=== PATIENT | female | born 1960 | race Caucasian/White ===

== ENCOUNTER 2024-11-19 07:42 | Day surgery (SDC) | payer OTHER, SELFPAY ==
[2024-11-19] VITALS (25 sets, daily range): BP systolic 94–169; BP diastolic 55–102; PULSE 59–100; RESP 14–24; TEMP 36.2–37.2; O2SAT 93–100; BMI 32.1
--- NOTE | 2024-11-19 07:58 | DI.CT.S_ITS ---
PROCEDURE: CT KIDNEY URETER BLADDER (KUB) INDICATIONS: Flank pain TECHNIQUE: Axial sections were acquired from the lung bases to the pubic symphysis. Coronal and sagittal reformats were performed. For radiation dose reduction, the following was used: automated exposure control, adjustment of mA and/or kV according to patient size. COMPARISON: None. FINDINGS: Image quality: Diagnostic. Lower Chest: No significant findings. URINARY: Right Kidney: No stones or hydronephrosis. Right Ureter: No hydroureter. Left Kidney: Severe hydronephrosis, perinephric stranding. 4 mm middle pole stone. Lower pole calyceal stone measuring 0.9 x 1.8 cm with a Hounsfield measurement of 283.4. Left Ureter: Proximal ureteral stone measuring 2.4 x 0.7 x 0.4 cm. There is a punctate 2 mm stone in the more distal ureter at the level of the S1 vertebral body. Bladder: Normal wall thickness. No stones. ABDOMEN: Liver: No contour-deforming solid mass. Gallbladder: No radiopaque gallstones or wall thickening. Biliary ducts: No biliary dilation. Pancreas: No ductal dilation. Spleen: Size is within normal limits. Adrenal Glands: No adrenal nodules. Stomach and Bowel: Normal colonic caliber, without significant wall thickening. Peritoneum: No abnormal intraperitoneal fluid. No free air. Ventral Wall: No hernia. Abdominal Nodes: No enlarged retroperitoneal or mesenteric lymph nodes. Vessels: Aorta and inferior vena cava are normal in size. PELVIS: Pelvic Organs: Uterus is surgically absent. No adnexal masses.. Pelvic Nodes: Unremarkable. Miscellaneous: No inguinal hernias are seen. Bones: Lumbar degenerative change. No lytic or blastic bony lesions. No compression fractures. IMPRESSION: 1. There is a long, somewhat thin stone obstructing the proximal left ureter, measuring 2.4 x 0.7 x 0.4 cm. It results in severe left hydronephrosis. 2. Punctate more distal left ureteral stone. 3. Large left lower pole calyceal stone and smaller left middle pole parenchymal stone. Dictated by: Edis Arciniega M.D. on 11/19/2024 at 8:26 Approved by: Edis Arciniega M.D. on 11/19/2024 at 8:32
[2024-11-19 08:04] LABS: Add Manual Diff / Slide Review NO; Basophils Absolute Auto 100 /uL (0-100); Basophils Percent Auto 0.4 % (0-2); Eosinophils Absolute Auto 0 /uL (0-450); Hematocrit 46.1 % (36-46); Hemoglobin 15.5 g/dL (12.0-16.0); Lymphocytes Absolute Auto 900 /uL (1100-4500); Lymphocytes Percent Auto 5.2 % (25-40); Mean Corpuscular HGB Conc 33.6 % (30-36); Mean Corpuscular Hemoglobin 30.1 PG (26-34); Mean Corpuscular Volume 89.8 fL (80-100); Monocytes Absolute Auto 900 /uL (0-900); Monocytes Percent Auto 5.3 % (3-14); Neutrophils Absolute Auto 15000 /uL (1500-7000); Neutrophils Percent Auto 89.1 % (50-75); Platelet Count 346 X10^3/uL (150-400); Red Blood Cell Count 5.13 X10^6/uL (4.0-5.2); Red Cell Distribution Width 13.9 % (11.6-14.8); White Blood Cell Count 16.8 X10^3/uL (4.5-11.0)
--- NOTE | 2024-11-19 08:06 | ED_ITS ---
HPI - General Adult General Chief complaint: Urogenital-Female Stated complaint: passing a stone Time Seen by Provider: 11/19/24 07:53 Source: patient Mode of arrival: Ambulatory History of Present Illness HPI narrative: Patient here for left flank pain. Nausea and vomiting and urinary urgency frequency. This started yesterday morning. She went to local emergency department on but no CT available. She states she has had multiple CT scans in the past including surgeries. She does not want Flomax. It makes her incontinent. She desires Toradol Zofran normal saline. She states she is not allergic to Percocet. She did drive here. Related Data Home Medications Medication Instructions Recorded Confirmed hydrochlorothiazide 25 mg tablet 25 mg DAILY 11/19/24 11/19/24 lisinopril 40 mg tablet 40 mg DAILY 11/19/24 11/19/24 potassium chloride 10 mEq 10 meq PO BID 11/19/24 11/19/24 capsule,extended release Previous Rx's Medication Instructions Recorded sulfamethoxazole 800 1 tab PO BID #10 tabs 11/19/24 mg-trimethoprim 160 mg tablet tamsulosin 0.4 mg capsule 0.4 mg PO DAILY #30 caps 11/19/24 Allergies Allergy/AdvReac Type Severity Reaction Status Date / Time ciprofloxacin [From Cipro] Allergy Unknown Verified 11/19/24 08:06 codeine Allergy Unknown HALLUCINATI Verified 11/19/24 08:06 ONS doxycycline Allergy Unknown Verified 11/19/24 08:06 nitrofurantoin Allergy Unknown Verified 11/19/24 08:06 NSAIDS (Non-Steroidal Allergy Unknown upset Verified 11/19/24 13:50 Anti-Inflamma stomach hydromorphone [From Dilaudid] AdvReac Severe Headache Verified 11/19/24 13:53 Review of Systems Review of Systems Narrative: GENERAL: Negative chills, fatigue, malaise, fever, sweats. HEENT: Negative sinus pain, ear pain, sore throat RESPIRATORY: Negative dyspnea, cough CARDIOVASCULAR: Negative chest pain, palpitations GASTROINTESTINAL: Positive flank pain at nausea, vomiting, abdominal pain : Positive dysuria, frequency, negative hematuria MUSCULOSKELETAL: Negative muscle or bony pain SKIN: Negative rash, skin lesions NEUROLOGIC: Negative weakness, numbness ROS Unobtainable: All systems reviewed & are unremarkable except as noted in HPI and below Patient History Medical History (Updated 11/19/24 @ 13:47 by Kavin Martins RN) HTN (hypertension) Social History Smoking Status: Former smoker alcohol intake: never Smoking Status: Never smoker Exam Narrative Exam Narrative: GENERAL: in no distress, not toxic not dyspneic HEAD: Normocephalic. EYES: Pupils equal round ENT: Mucous membranes moist. NECK: Trachea midline. CARDIOVASCULAR: Regular rate and rhythm RESPIRATORY: Clear to auscultation. Breath sounds equal bilaterally. No wheezes, rales, or rhonchi. GASTROINTESTINAL: Abdomen soft, non-tender, no peritoneal signs no guarding or rebound. Bowel sounds are present. EXTREMITIES: No gross deformities. BACK: Mild left CVA tenderness NEURO: AOx4. Clear speech SKIN: Warm and dry PSYCH: Not anxious, is cooperative Initial Vital Signs Initial Vital Signs: Vital Signs Temperature 98.9 F 11/19/24 07:48 Pulse Rate 95 H 11/19/24 07:48 Respiratory Rate 17 11/19/24 07:48 Blood Pressure 159/98 H 11/19/24 07:48 Pulse Oximetry 97 11/19/24 07:48 Oxygen Delivery Method Room Air 11/19/24 07:48 Course Orders Ordered: Discontinued Medications Acetaminophen (Acetaminophen 325 Mg Tablet) 975 mg PO Q6H PRN PRN Reason: Pain, Mild (1-3) Benzocaine (Benzocaine/Menthol 1 Amada Pkt) 1 each PO PRN PRN PRN Reason: Sore Throat Dexamethasone (Dexamethasone 10 Mg/Ml Vial) 8 mg IV NOW PRN PRN Reason: Nausea And Vomiting Fentanyl (Fentanyl 100 Mcg/2 Ml Inj) 0 mcg IV Q5M PRN PRN Reason: Pain, Moderate (4-6) Hydroxyzine HCl (Hydroxyzine Hcl 25 Mg Tablet) 25 mg PO NOW PRN PRN Reason: Pain, Mild (1-3) Sodium Chloride (Normal Saline 0.9%) 1,000 mls @ 1,000 mls/hr IV BOLUS ONE Stop: 11/19/24 08:57 Last Infusion: 11/19/24 09:37 Dose: Infused Documented By: Admin: 11/19/24 08:09 Dose: 1,000 mls/hr Documented By: RENETTA Ceftriaxone Sodium 2,000 mg/ (Sodium Chloride) 100 mls @ 200 mls/hr IV NOW ONE Stop: 11/19/24 09:18 Last Infusion: 11/19/24 10:09 Dose: Infused Documented By: Admin: 11/19/24 09:34 Dose: 200 mls/hr Documented By: RENETTA Lactated Ringer's (Lactated Ringers) 1,000 mls @ 42 mls/hr IV NOW ONE Stop: 11/20/24 13:49 Last Infusion: 11/19/24 15:31 Dose: Infused Documented By: Admin: 11/19/24 14:01 Dose: 42 mls/hr Documented By: SHADE Lactated Ringer's (Lactated Ringers) 1,000 mls @ 120 mls/hr IV CONT LISA Acetaminophen (Ofirmev) 1,000 mg in 100 mls @ 400 mls/hr IV NOW ONE Stop: 11/19/24 15:01 Last Infusion: 11/19/24 15:32 Dose: Infused Documented By: Admin: 11/19/24 15:13 Dose: 400 mls/hr Documented By: CORIE Iopamidol (Iopamidol 30 Ml Vial) 30 ml INJ NOW ONE Stop: 11/19/24 14:34 Last Admin: 11/19/24 14:33 Dose: 30 ml Documented By: DIANA Ketorolac Tromethamine (Ketorolac 30 Mg/Ml Vial) 15 mg IV NOW ONE Stop: 11/19/24 07:59 Last Admin: 11/19/24 08:09 Dose: 15 mg Documented By: RENETTA Ketorolac Tromethamine (Ketorolac 30 Mg/Ml Vial) 30 mg IV NOW PRN PRN Reason: Pain, Mild (1-3) Last Admin: 11/19/24 15:13 Dose: 30 mg Documented By: CORIE Ondansetron HCl (Ondansetron 4 Mg/2 Ml Inj) 4 mg IV NOW PRN PRN Reason: Nausea And Vomiting Ondansetron HCl (Ondansetron 4 Mg Odt) 4 mg PO NOW PRN PRN Reason: Nausea And Vomiting Ondansetron HCl (Ondansetron 4 Mg/2 Ml Inj) 4 mg IV NOW ONE Stop: 11/19/24 07:59 Last Admin: 11/19/24 08:10 Dose: 4 mg Documented By: RENETTA Ondansetron HCl (Ondansetron 4 Mg/2 Ml Inj) 4 mg IV NOW PRN PRN Reason: Nausea And Vomiting Ondansetron HCl (Ondansetron 4 Mg/2 Ml Inj) 4 mg IV Q4H PRN PRN Reason: Nausea And Vomiting Oxycodone HCl (Oxycodone Ir 5 Mg Tablet) 5 mg PO PACUNOW PRN PRN Reason: Mild or moderate pain Vital Signs Vital signs: Vital Signs - 8 hr 11/19/24 07:48 11/19/24 07:51 11/19/24 07:54 Temperature 98.9 F Pulse Rate 95 H 100 H Respiratory Rate 17 Blood Pressure 159/98 H 159/98 H Pulse Oximetry 97 98 Oxygen Delivery Method Room Air 11/19/24 07:54 11/19/24 08:00 11/19/24 08:00 Temperature Pulse Rate 85 82 Respiratory Rate Blood Pressure 159/102 H Pulse Oximetry 96 97 Oxygen Delivery Method 11/19/24 08:09 11/19/24 08:09 11/19/24 08:30 Temperature Pulse Rate 82 68 Respiratory Rate Blood Pressure 168/96 H Pulse Oximetry 96 96 Oxygen Delivery Method 11/19/24 08:31 11/19/24 08:31 11/19/24 09:02 Temperature Pulse Rate 68 75 Respiratory Rate Blood Pressure 169/94 H Pulse Oximetry 99 99 Oxygen Delivery Method Medical Decision Making Lab Data 11/19/24 07:50 11/19/24 07:50 Labs: Lab Results 11/19/24 Range/Units 07:50 WBC 16.8 H (4.5-11.0) X10^3/uL RBC 5.13 (4.0-5.2) X10^6/uL Hgb 15.5 (12.0-16.0) g/dL Hct 46.1 H (36-46) % MCV 89.8 (80-100) fL MCH 30.1 (26-34) PG MCHC 33.6 (30-36) % RDW 13.9 (11.6-14.8) % Plt Count 346 (150-400) X10^3/uL Neut % (Auto) 89.1 H (50-75) % Lymph % (Auto) 5.2 L (25-40) % [place] % (Auto) 5.3 (3-14) % Eos % (Auto) 0.0 L (2-4) % Baso % (Auto) 0.4 (0-2) % Neut # (Auto) 37378 H (7684-6218) /uL Lymph # (Auto) 900 L (6264-5761) /uL [place] # (Auto) 900 (0-900) /uL Eos # (Auto) 0 (0-450) /uL Baso # (Auto) 100 (0-100) /uL Sodium 135 L (137-145) mmol/L Potassium 3.8 (3.4-5.1) mmol/L Chloride 100 (98-107) mmol/L Carbon Dioxide 23 (22-32) mmol/L BUN 22 H (7-17) mg/dL Creatinine 1.36 H (0.52-1.04) mg/dL Estimated GFR 43 L (>60) mL/min BUN/Creatinine Ratio 16.2 (6-22) Glucose 143 H (80-110) mg/dL Calcium 9.2 (8.4-10.2) mg/dL Total Bilirubin 1.0 (0.2-1.3) mg/dL AST 34 (14-36) IU/L ALT 29 (<35) IU/L Alkaline Phosphatase 69 (38-126) U/L Total Protein 7.5 (6.3-8.2) g/dL Albumin 4.5 (3.5-5.0) g/dL Globulin 3.0 (1.7-4.1) g/dL Albumin/Globulin Ratio 1.5 (1.0-2.8) Lipase 809 H (23-300) U/L Urine RBC 1-5/hpf (0-5/HPF) Urine WBC 5-10/hpf H (0-5/HPF) Ur Squamous Epith Cells None seen (0-5/HPF) Ur Transition Epith Cell 0-1/hpf (0-5/HPF) Ur Renal Epithelial Cell 1-5/hpf H (0-1/HPF) Urine Bacteria None seen (None) Ur Culture Indicated? Specimen cultured Vol Urine Centrifuged 10ml (spun) Urine Dip Bedside Urine Glucose Negative Bedside Urine Bilirubin - Negative Bedside Urine Ketone - Negative Urine Specific [place] 1.010 Bedside Urine Occult Blood +++ Bedside Urine pH 6.0 Bedside Urine Protein - Negative Bedside Urine Urobilinogen - Negative Bedside Urine Nitrite - Negative Bedside Urine Leukocytes +++ 500 Esterase Point of care testing: Urine Dip Bedside Urine Glucose Negative Bedside Urine Bilirubin - Negative Bedside Urine Ketone - Negative Urine Specific [place] 1.010 Bedside Urine Occult Blood +++ Bedside Urine pH 6.0 Bedside Urine Protein - Negative Bedside Urine Urobilinogen - Negative Bedside Urine Nitrite - Negative Bedside Urine Leukocytes +++ [address] scan - abdomen/pelvis: Radiologist's Impression: [address] [id number] [address] Scan Report Signed Patient: Esme Sevilla MR#: [id number] : 1960 Acct:[id number] Age/Sex: 64 / F Date of Service: 11/19/24 Loc: ED Accession Number: [id number] Procedure: CT kidney ureter bladder (KUB) Ordering Provider: Vinh Milan MD PROCEDURE: CT KIDNEY URETER BLADDER (KUB) INDICATIONS: Flank pain TECHNIQUE: Axial sections were acquired from the lung bases to the pubic symphysis. Coronal and sagittal reformats were performed. For radiation dose reduction, the following was used: automated exposure control, adjustment of mA and/or kV according to patient size. COMPARISON: None. FINDINGS: Image quality: Diagnostic. Lower Chest: No significant findings. URINARY: Right Kidney: No stones or hydronephrosis. Right Ureter: No hydroureter. Left Kidney: Severe hydronephrosis, perinephric stranding. 4 mm middle pole stone. Lower pole calyceal stone measuring 0.9 x 1.8 cm with a Hounsfield measurement of 283.4. Left Ureter: Proximal ureteral stone measuring 2.4 x 0.7 x 0.4 cm. There is a punctate 2 mm stone in the more distal ureter at the level of the S1 vertebral body. Bladder: Normal wall thickness. No stones. ABDOMEN: Liver: No contour-deforming solid mass. Gallbladder: No radiopaque gallstones or wall thickening. Biliary ducts: No biliary dilation. Pancreas: No ductal dilation. Spleen: Size is within normal limits. Adrenal Glands: No adrenal nodules. Stomach and Bowel: Normal colonic caliber, without significant wall thickening. Peritoneum: No abnormal intraperitoneal fluid. No free air. Ventral Wall: No hernia. Abdominal Nodes: No enlarged retroperitoneal or mesenteric lymph nodes. Vessels: Aorta and inferior vena cava are normal in size. PELVIS: Pelvic Organs: Uterus is surgically absent. No adnexal masses.. Pelvic Nodes: Unremarkable. Miscellaneous: No inguinal hernias are seen. Bones: Lumbar degenerative change. No lytic or blastic bony lesions. No compression fractures. IMPRESSION: 1. There is a long, somewhat thin stone obstructing the proximal left ureter, measuring 2.4 x 0.7 x 0.4 cm. It results in severe left hydronephrosis. 2. Punctate more distal left ureteral stone. 3. Large left lower pole calyceal stone and smaller left middle pole parenchymal stone. Dictated by: Edis Arciniega M.D. on 11/19/2024 at 8:26 Approved by: Edis Arciniega M.D. on 11/19/2024 at 8:32 MDM Narrative Medical decision making narrative: Patient here for left flank pain. Nausea and vomiting and urinary urgency frequency. This started yesterday morning. She went to local emergency department on but no CT available. She states she has had multiple CT scans in the past including surgeries. She does not want Flomax. It makes her incontinent. She desires Toradol Zofran normal saline. She states she is not allergic to Percocet. She did drive here. After history and exam, Toradol Zofran normal saline CT KUB CBC CMP urinalysis [facility] Medical records reviewed: No recent visit for this complaint Differential considered: Includes but not limited to kidney stone ureteral stone UTI pyelonephritis Lab Test results independently reviewed as above. Pertinent findings: WBC 17 sodium 135 BUN 22 creatinine 1.36 GFR 43 urinalysis positive leukocytes Imaging studies independently reviewed: CT abdomen pelvis left large stone with obstruction Consultations: 9:20 a.m.. Spoke with [facility] Dr. Osbaldo Chirinos, urology, they do not have beds at this time he thinks, however patient does need Rocephin and a ureteral stent. Recommends calling around locally for hospitalist as well. 10:41 a.m.. Urology here, dr aguilera, has seen patient and will take patient to the operating from the emergency department this afternoon. Treatments: Toradol Zofran Rocephin Re-evaluations: 9:25 a.m.. Spoke with patient she does understand and will need transfer for ureteral stent has the stone is likely stocking causing infection. 10:45 a.m.. Patient is pleased that she will be staying here with [facility]. Discussion: Appropriate for admission, urology here, Dr. Aguilera, has kindly accepted patient to the OR Diagnosis: Infected kidney stone Discharge Plan Departure Patient Disposition: Admitted to Surgery Clinical Impression: Calculus, ureteral
[2024-11-19] MEDS: KETOROLAC 30 MG/ML VIAL 15 MG IV (08:09)
[2024-11-19] MEDS: SODIUM CHLORIDE 0.9% 1,000 ML 1000 ML IV (08:09)
[2024-11-19] MEDS: ONDANSETRON 4 MG/2 ML INJ IV (08:10)
[2024-11-19 08:13] LABS: Urine Volume 10mL (spun)
[2024-11-19 08:14] LABS: Alanine Aminotransferase 29 IU/L (<35); Albumin 4.5 g/dL (3.5-5.0); Albumin Globulin Ratio 1.5 (1.0-2.8); Alkaline Phosphatase 69 U/L (38-126); Aspartate Aminotransferase 34 IU/L (14-36); BUN Creatinine Ratio 16.2 (6-22); Blood Urea Nitrogen 22 mg/dL (7-17); Calcium 9.2 mg/dL (8.4-10.2); Carbon Dioxide 23 mmol/L (22-32); Chloride 100 mmol/L (98-107); Estimated Glomerular Filt Rate 43 mL/min (>60); Glucose 143 mg/dL (80-110); HEMOLYSIS < 15 (0-50); Lipase 809 U/L (23-300); Potassium 3.8 mmol/L (3.4-5.1); Sodium 135 mmol/L (137-145); Total Protein 7.5 g/dL (6.3-8.2)
[2024-11-19 08:19] LABS: Bacteria Urine None Seen; Culture Indicated Urine Specimen Cultured; RBC Urine 1-5/HPF (0-5/HPF); Renal Epithelial Cells Urine 1-5/HPF (0-1/HPF); Squamous Epithelial Cell Urine None Seen (0-5/HPF); Transitional Epi Cells Urine 0-1/HPF (0-5/HPF); WBC Urine 5-10/HPF (0-5/HPF)
[2024-11-19] MEDS: cefTRIAXone 2,000 MG in SODIUM CHLORIDE 0.9% 100 ML 200 MG IV (09:34)
--- NOTE | 2024-11-19 11:10 | P.CONS_ITS ---
History of Present Illness Consult details Date Patient Seen: 11/19/24 Time Patient Seen: 10:11 Chief complaint: passing a stone Reason for consult: Left ureteral stone, concern for UTI Narrative: 64 y/o F w/ extensive h/o nephrolithiasis presented to ER for evaluation of severe left flank pain w/ nausea and vomiting. Briefly, she began to have the aforementioned symptoms on the morning of 18 Nov 2024 and felt they were very similar to her previous stone episodes. She presented to an ER on one of the [facility], however, they did not have a CT scan and instructed her to come to ER. Her evaluation here is notable for AFVSS, WNL, WBC of 16.8, sCr of 1.36, UA concerning for a UTI and a CT KUB that demonstrates a 2.4cm left proximal ureterolith with resultant upstream severe hydroureteronephrosis as well as a 1.8cm left lower pole calyx and questionable punctate distal left ureterolith. Urology was consulted regarding further management. She admits to passing roughly 6 kidney stones w/in her lifetime and has required ESWL on multiple occasions. Meds Home Medications and Allergies Home Medications Medication Instructions Recorded Confirmed Type hydrochlorothiazide 25 mg tablet 25 mg DAILY 11/19/24 11/19/24 History lisinopril 40 mg tablet 40 mg DAILY 11/19/24 11/19/24 History potassium chloride 10 mEq 10 meq PO BID 11/19/24 11/19/24 History capsule,extended release Allergies Allergy/AdvReac Type Severity Reaction Status Date / Time ciprofloxacin [From Cipro] Allergy Unknown Verified 11/19/24 08:06 codeine Allergy Unknown HALLUCINATI Verified 11/19/24 08:06 ONS doxycycline Allergy Unknown Verified 11/19/24 08:06 nitrofurantoin Allergy Unknown Verified 11/19/24 08:06 NSAIDS (Non-Steroidal Allergy Unknown Verified 11/19/24 08:06 Anti-Inflamma Review of Systems Review of Systems Narrative: CONSTITUTIONAL: Denies weight loss, fevers, chills. HEENT: Denies change in vision, hearing. RESP: Denies SOB, cough. CV: Denies palpations, CP. GI: Denies abdominal pain, nausea, vomiting, diarrhea. : Denies dysuria, hematuria, inability to void. MSK: Denies myalgia, joint pain. SKIN: Denies rash, pruritus. NEURO: Denies headache, syncope. PSYCH: Denies recent change in mood, anxiety, depression. Exam Vital Signs (past 8 hours): - 11/19/24 07:48 11/19/24 07:51 11/19/24 07:54 Temperature 98.9 F Pulse Rate 95 H 100 H Respiratory Rate 17 Blood Pressure 159/98 H 159/98 H Pulse Oximetry 97 98 Oxygen Delivery Method Room Air 11/19/24 07:54 11/19/24 08:00 11/19/24 08:00 Temperature Pulse Rate 85 82 Respiratory Rate Blood Pressure 159/102 H Pulse Oximetry 96 97 Oxygen Delivery Method 11/19/24 08:09 11/19/24 08:09 11/19/24 08:30 Temperature Pulse Rate 82 68 Respiratory Rate Blood Pressure 168/96 H Pulse Oximetry 96 96 Oxygen Delivery Method 11/19/24 08:31 11/19/24 08:31 11/19/24 09:02 Temperature Pulse Rate 68 75 Respiratory Rate Blood Pressure 169/94 H Pulse Oximetry 99 99 Oxygen Delivery Method 11/19/24 10:26 11/19/24 10:26 11/19/24 10:30 Temperature Pulse Rate 71 72 Respiratory Rate Blood Pressure 121/64 Pulse Oximetry 100 98 Oxygen Delivery Method Oxygen Delivery Method Room Air Narrative Exam Narrative: GEN: Alert and oriented X3. No acute distress. Well-nourished. EYES: PERRLA, EOMI. HENT: Moist mucus membranes, no scleral icterus, normal neck ROM. RESP: Unlabored breathing, equal rise and fall of chest bilaterally, no cyanosis appreciated. CV: No peripheral edema, unremarkable heart rate. ABD: Soft, non-tender, non-distended, no palpable masses. : L CVAT, no R CVAT. EXT: No edema, clubbing or cyanosis. SKIN: No rashes or lesions. NEURO: No focal neurologic deficits, CN II-XII grossly intact. PSYCH: Cooperative, appropriate mood and affect. Objective Labs 11/19/24 07:50 11/19/24 07:50 Labs: Laboratory Results - last 24 hr 11/19/24 07:50 WBC 16.8 H RBC 5.13 Hgb 15.5 Hct 46.1 H MCV 89.8 MCH 30.1 MCHC 33.6 RDW 13.9 Plt Count 346 Neut % (Auto) 89.1 H Lymph % (Auto) 5.2 L [place] % (Auto) 5.3 Eos % (Auto) 0.0 L Baso % (Auto) 0.4 Neut # (Auto) 88253 H Lymph # (Auto) 900 L [place] # (Auto) 900 Eos # (Auto) 0 Baso # (Auto) 100 Sodium 135 L Potassium 3.8 Chloride 100 Carbon Dioxide 23 BUN 22 H Creatinine 1.36 H Estimated GFR 43 L BUN/Creatinine Ratio 16.2 Glucose 143 H Calcium 9.2 Total Bilirubin 1.0 AST 34 ALT 29 Alkaline Phosphatase 69 Total Protein 7.5 Albumin 4.5 Globulin 3.0 Albumin/Globulin Ratio 1.5 Lipase 809 H Urine RBC 1-5/hpf Urine WBC 5-10/hpf H Ur Squamous Epith Cells None seen Ur Transition Epith Cell 0-1/hpf Ur Renal Epithelial Cell 1-5/hpf H Urine Bacteria None seen Ur Culture Indicated? Specimen cultured Vol Urine Centrifuged 10ml (spun) PFS Tobacco & Substance Use Smoking Status: Never smoker Assessment & Plan Assessment and plan (1) Left ureteral calculus: Status: Acute Plan: 64 y/o F w/ extensive h/o nephrolithiasis who was noted to have a 2.4cm left proximal ureterolith with resultant upstream severe hydroureteronephrosis as well as a 1.8cm left lower pole calyx and questionable punctate distal left ureterolith in the setting of a urinary tract infection. Discussed treatment options to include continued medical expulsion therapy (not recommended due to very large stone, poor pain control, PO intolerance and concern for UTI) vs cystoscopy with left ureteral stent placement. Discussed risks of the procedure to include pain, bleeding, infection, injury to urethra/bladder/ureter, inability to access the ureter requiring discussion with Interventional Radiology regarding a possible ureteral stent placement in an antegrade fashion vs a possible nephroureteral stent and/or percutaneous nephrostomy tube, urinary tract infection, need for emergent open repair of bladder and/or ureter. She indicated understanding and informed consent was obtained today in the ER. Time-Based Coding :: [TOTAL MINUTES] spent with patient and on the chart (including review of chart, obtaining history, exam, reviewing outside data, placing orders, documenting exam and treatment plan, and counseling patient) on [DATE]. PROFEE Charge Codes Inpatient or Observation consultation: [id number]
[2024-11-19] MEDS: LACTATED RINGERS 1,000 ML 42 ML IV (14:01)
[2024-11-19] MEDS: iopamidoL 30 ML VIAL INJ (14:33)
--- NOTE | 2024-11-19 14:41 | PM.OP.1 ---
Procedure & Clinicians Procedure: Cystoscopy Left ureteral stent placement Intraoperative interpretation of fluoroscopic images, total time < 1 hour Same procedure as scheduled: Yes Indications: 64 y/o F w/ extensive h/o nephrolithiasis who was noted to have a 2.4cm left proximal ureterolith with resultant upstream severe hydroureteronephrosis as well as a 1.8cm left lower pole calyx and questionable punctate distal left ureterolith in the setting of a urinary tract infection. Surgeon: Owen Ortiz Click Yes if Unassisted: Yes Anesthesia Type: General Operative Notes Findings: Cloudy urine consistent with a urinary tract infection, severe left hydronephrosis Closure Type: not applicable Specimen(s): none sent Estimated Blood Loss (mL): 2 Blood products transfused: none Procedure in detail: Patient was identified in the preoperative holding area and consent confirmed. She was then brought to the operating room where general anesthesia was induced.? She was then placed in the low lithotomy position. She was then prepped and draped in the usual sterile fashion. A surgical timeout was conducted and all were in agreement. Access to the bladder was obtained via a 21Fr cystoscope.? Cloudy urine was immediately noted within the bladder.? The left ureteral orifice was easily visualized and a 0.035 sensor tip ureteral guidewire was advanced through the 5Fr ureteral catheter and into the left renal collecting system.? The ureteral guidewire was removed and a retrograde pyelogram was performed which noted severe left hydronephrosis.? The ureteral guidewire was readvanced through the ureteral catheter and into the left renal pelvis.? The ureteral catheter was then removed.? A 6Fr multi-length JJ ureteral stent without strings was then advanced over the ureteral guidewire and into the left renal collecting system.? Upon removal of the ureteral guidewire, a good curl was appreciated within the left renal pelvis upon fluoroscopy and visually within the bladder.? The bladder was then drained and the cystoscope was removed.? Anesthesia was reversed, she was extubated in the OR and transferred to the PACU in stable condition for recovery. Complications: none Post-operative Condition: stable Disposition: PACU Plan for aftercare: Discharge home from PACU. Will return in 2-12 weeks for a cystoscopy, left ureteroscopy, laser lithotripsy and left ureteral stent exchange.
--- NOTE | 2024-11-19 14:50 | SUR.OPER ---
Lithotomy on padded OR bed, head on pillow, arms secured on padded arm boards at <90 degrees abduction. Legs secured in padded yellow fins stirrups.
--- NOTE | 2024-11-19 15:09 | DI.RAD.S_ITS ---
PROCEDURE: XR ABDOMEN 1V INDICATIONS: STENT PLACEMENT TECHNIQUE: 2 intra-operative images acquired by the Urology service. COMPARISON: [facility], CT, CT KIDNEY URETER BLADDER (KUB), 11/19/2024, 8:03. FINDINGS: Ejecting contrast in the left renal collecting system. There is a the double-J ureteral stent in place. IMPRESSION: Intraoperative guidance provided. Dictated by: Stuart Deleon M.D. on 11/19/2024 at 16:40 Approved by: Stuart Deleon M.D. on 11/19/2024 at 16:41
[2024-11-19] MEDS: KETOROLAC 30 MG/ML VIAL IV (15:13)
[2024-11-19] MEDS: ACETAMINOPHEN IV 1,000 MG/100 ML VIAL 400 MG IV (15:13)
--- NOTE | 2024-11-19 15:57 | SUR.PHASEII ---
1555 hrs: Pt ambulates to bathroom with steady gait. Ambulates back to bed, states she successfully urinated.
== END 2024-11-19 16:45 | disposition home or self-care (01) ==
LOC: ED 10:41 → AC 12:13 → OR 11-20 06:05
PROVIDERS: Emergency Provider Emergency Medicine; PCP Naturopath; Referring Provider Emergency Medicine; Visit Provider Urology
PROC: (CPT 52332; principal; 2024-11-19 14:30)
DX: N13.2 Hydronephrosis with renal and ureteral calculous obstruction (principal)
CPT/HCPCS: 52332; 36415; 74018; 74176; 76000; 80053; 81003; 81015; 83690; 85025; 87086; 96361; 96365; 96367; 99284; G0378; C2617; J0134; J0696; J1100; J1885; J2250; J2405; J2704; J3010; J3490; Q9967

== ENCOUNTER 2024-11-30 06:35 | Day surgery (SDC) | payer OTHER, SELFPAY ==
[2024-11-30] VITALS (7 sets, daily range): BP systolic 125–166; BP diastolic 75–93; PULSE 73–83; RESP 10–17; TEMP 36.2–37.1; O2SAT 92–99; BMI 41.2
--- NOTE | 2024-11-30 | DI.RAD.S_ITS ---
PROCEDURE: XR ABDOMEN 1V INDICATIONS: CYSTOSCOPY TECHNIQUE: 2 intra-operative images acquired by the Urology service. COMPARISON: [facility], CR, XR ABDOMEN 1V, 11/19/2024, 14:31. FINDINGS: Opacification of the left renal collecting system with ureteral stent in appropriate position. IMPRESSION: Appropriately positioned left ureteral stent and left renal collecting system opacification. Dictated by: Ramos Luna M.D. on 12/01/2024 at 12:02 Approved by: Ramos Luna M.D. on 12/01/2024 at 12:03
[2024-11-30] MEDS: LACTATED RINGERS 1,000 ML 21 ML IV (07:14)
--- NOTE | 2024-11-30 07:33 | PM.HP.IH.1 ---
History of Present Illness History of Present Illness Date Patient Seen: 11/30/24 Time Patient Seen: 07:34 Chief complaint: Left ureteral stones Narrative: 64 y/o F w/ extensive h/o nephrolithiasis presented to ER for evaluation of severe left flank pain w/ nausea and vomiting on 19 November 2024. Briefly, she began to have the aforementioned symptoms on the morning of 18 Nov 2024 and felt they were very similar to her previous stone episodes. She presented to an ER on one of the [facility], however, they did not have a CT scan and instructed her to come to ER. Her evaluation here was notable for AFVSS, WNL, WBC of 16.8, sCr of 1.36, UA concerning for a UTI and a CT KUB that demonstrated a 2.4cm left proximal ureterolith with resultant upstream severe hydroureteronephrosis as well as a 1.8cm left lower pole calyx and questionable punctate distal left ureterolith. She was managed acutely w/ a cystoscopy and left ureteral stent placement and returns today for definitive stone management via a cystoscopy, left ureteroscopy, laser lithotripsy and left ureteral stent exchange. Of note, her subsequent UCx was notable for Lactobacillus species. She admits to passing roughly 6 kidney stones w/in her lifetime and has required ESWL on multiple occasions. [facility] [place] Medical History Nephrolithiasis HTN (hypertension) Surgical History S/P cystoscopy with ureteral stent placement (11/19/24) Social History household members: none Smoking Status: Former smoker alcohol intake: never Meds Home Medications and Allergies Home Medications Medication Instructions Recorded Confirmed Type hydrochlorothiazide 25 mg tablet 25 mg DAILY 11/19/24 11/30/24 History lisinopril 40 mg tablet 40 mg DAILY 11/19/24 11/30/24 History potassium chloride 10 mEq 10 meq PO BID 11/19/24 11/30/24 History capsule,extended release tamsulosin 0.4 mg capsule 0.4 mg PO DAILY #30 caps 11/19/24 11/30/24 Rx Allergies Allergy/AdvReac Type Severity Reaction Status Date / Time codeine Allergy Unknown HALLUCINATI Verified 11/30/24 06:51 ONS doxycycline Allergy Unknown Verified 11/30/24 06:51 nitrofurantoin Allergy Unknown Verified 11/30/24 06:51 NSAIDS (Non-Steroidal Allergy Unknown upset Verified 11/30/24 06:51 Anti-Inflamma stomach hydromorphone [From Dilaudid] AdvReac Severe Headache Verified 11/30/24 06:51 ciprofloxacin [From Cipro] AdvReac Unknown Headache Verified 11/30/24 06:51 Review of Systems Review of Systems Narrative: CONSTITUTIONAL: Denies weight loss, fevers, chills. HEENT: Denies change in vision, hearing. RESP: Denies SOB, cough. CV: Denies palpations, CP. GI: Denies abdominal pain, nausea, vomiting, diarrhea. : Denies dysuria, hematuria, inability to void. MSK: Denies myalgia, joint pain. SKIN: Denies rash, pruritus. NEURO: Denies headache, syncope. PSYCH: Denies recent change in mood, anxiety, depression. Exam Vital Signs (past 8 hours): - 11/30/24 07:15 Temperature 98.5 F Pulse Rate 83 Respiratory Rate 17 Blood Pressure 136/91 H Pulse Oximetry 96 Oxygen Delivery Method Room Air Oxygen Delivery Method Room Air Narrative Exam Narrative: GEN: Alert and oriented X3. No acute distress. Well-nourished. EYES: PERRLA, EOMI. HENT: Moist mucus membranes, no scleral icterus, normal neck ROM. RESP: Unlabored breathing, equal rise and fall of chest bilaterally, no cyanosis appreciated. CV: No peripheral edema, unremarkable heart rate. ABD: Soft, non-tender, non-distended, no palpable masses. EXT: No edema, clubbing or cyanosis. SKIN: No rashes or lesions. NEURO: No focal neurologic deficits, CN II-XII grossly intact. PSYCH: Cooperative, appropriate mood and affect. Assessment & Plan Assessment and plan (1) Left ureteral calculus: Status: Acute Plan: 64 y/o F w/ extensive h/o nephrolithiasis who was noted to have a 2.4cm left proximal ureterolith with resultant upstream severe hydroureteronephrosis as well as a 1.8cm left lower pole calyx and questionable punctate distal left ureterolith in the setting of a urinary tract infection in early November 2024 and was treated via a cystoscopy w/ left ureteral stent placement and antibiotics. She returns today for definitive stone management via a cystoscopy, left ureteroscopy, laser lithotripsy and left ureteral stent exchange. Discussed risks of the procedure to include pain, bleeding, infection, injury to urethra/bladder/ureter, inability to access the ureter requiring discussion with Interventional Radiology regarding a possible ureteral stent placement in an antegrade fashion vs a possible nephroureteral stent and/or percutaneous nephrostomy tube, urinary tract infection, inability to remove all of the stone in one setting, need for emergent open repair of bladder and/or ureter, need for multiple ureteroscopic interventions necessary to render the patient stone free. She indicated understanding and informed consent was obtained this morning. Time-Based Coding :: [TOTAL MINUTES] spent with patient and on the chart (including review of chart, obtaining history, exam, reviewing outside data, placing orders, documenting exam and treatment plan, and counseling patient) on [DATE]. [employer] Forming Document charge(s): Yes Charge Codes Initial inpatient/observation care: [id number]
[2024-11-30] MEDS: CLINDAMYCIN 900 MG/50 ML PIGGYBACK 50 MG IV (07:48)
--- NOTE | 2024-11-30 08:09 | SUR.OPER ---
Lithotomy on padded OR bed, head on pillow, arms secured on padded arm boards at <90 degrees abduction. Legs secured in padded yellow fins stirrups.
[2024-11-30] MEDS: iopamidoL 30 ML VIAL INJ (08:29)
--- NOTE | 2024-11-30 09:05 | PM.OP.1 ---
Procedure & Clinicians Procedure: Cystoscopy Left retrograde ureteropyelogram Left ureteroscopy, laser lithotripsy Left ureteral stent exchange Intraoperative interpretation of fluoroscopic images, total time < 1 hour Same procedure as scheduled: Yes Indications: 64 y/o F w/ extensive h/o nephrolithiasis who was noted to have a 2.4cm left proximal ureterolith with resultant upstream severe hydroureteronephrosis as well as a 1.8cm left lower pole calyx and questionable punctate distal left ureterolith in the setting of a urinary tract infection in early November 2024 and was treated via a cystoscopy w/ left ureteral stent placement and antibiotics. She returns today for definitive stone management via a cystoscopy, left ureteroscopy, laser lithotripsy and left ureteral stent exchange. Surgeon: Owen Ortiz Click Yes if Unassisted: Yes Anesthesia Type: General Operative Notes Findings: Too numerous to count small uroliths coalescing in left proximal ureter and left lower pole as large calculi. Closure Type: not applicable Specimen(s): other (left kidney stone) Estimated Blood Loss (mL): 5 Blood products transfused: none Procedure in detail: Procedures: 1) Cystoscopy 2) Left retrograde ureteropyelogram 3) Left ureteroscopy, laser lithotripsy 4) Left ureteral stent exchange 5) Intraoperative interpretation of fluoroscopic images, < 1 hour, all images saved to PACS Indication: Patient was identified in the preoperative holding area and consent confirmed. She was then brought to the operating room where general anesthesia was induced.? She was placed in the low lithotomy position. She was then prepped and draped in the usual sterile fashion. A surgical timeout was conducted and all were in agreement. ?Access to the bladder was obtained via a 30 degree cystoscope.? Complete cystoscopy was then performed and no concerning bladder masses or lesions were appreciated.? Bilateral ureteral orifices were easily identified and noted to be orthotopic in nature.? The previously placed left ureteral stent was easily visualized and externalized using the stent grasper.? A 0.035 sensor tip ureteral guidewire was advanced through the stent and into the left renal pelvis.? A 12/14Fr ureteral access sheath was then advanced over the ureteral guidewire and into the proximal left ureter.? The ureteral guidewire and inner obturator were then removed.? The flexible ureteroscope was then advanced through the ureteral access sheath and to the level of the left proximal ureter where a large collection of small uroliths were noted, these were easily removed using a stone basket and submitted as permanent specimen.? Complete pyeloscopy was then performed and numerous small uroliths were appreciated within virtually every calyx.? Laser lithotripsy was then performed utilizing the 275 micron laser fiber.? All stone fragments >1mm in size were removed via the stone basket and sent for chemical analysis.? A retrograde pyelogram was then performed which noted no filling defects concerning for residual stone.? The ureteral guidewire was then readvanced through the ureteroscope and into the left renal pelvis.? The ureter was then directly visualized upon removal of the ureteroscope and ureteral access sheath and noted to be stone free.? The cystoscope was then backloaded over the ureteral guidewire and advanced into the bladder.? A 6Fr multi-length JJ ureteral stent without strings was then advanced over the ureteral guidewire.? Upon removal of the guidewire, a good curl was noted within the left renal pelvis upon fluoroscopy and visually within the bladder.? The bladder was then drained and the cystoscope was removed.? Anesthesia was reversed, she was extubated in the OR and transferred to the PACU in stable condition for recovery. Post-operative Condition: stable Disposition: PACU Plan for aftercare: Discharge home from PACU. Will return to Urology clinic on 01 Jan 2025 to have her left ureteral stent removed via cystoscopy.
[2024-11-30] MEDS: ACETAMINOPHEN IV 1,000 MG/100 ML VIAL 400 MG IV (09:08)
[2024-11-30] MEDS: KETOROLAC 30 MG/ML VIAL IV (09:08)
[2024-12-07 13:09] LABS: Size 3x3 mm (.); Uric Acid 100 % (.)
== END 2024-11-30 10:14 | disposition home or self-care (01) ==
PROVIDERS: PCP Naturopath; Referring Provider Urology; Visit Provider Urology
PROC: 0TF78ZZ Fragmentation in Left Ureter, Via Natural or Artificial Opening Endoscopic (ICD-10-PCS; CPT 52353; principal; 2024-11-30 07:45)
DX: N13.2 Hydronephrosis with renal and ureteral calculous obstruction (principal)
CPT/HCPCS: 52356; 74018; 74420; 76000; 82365; C2617; J0131; J1100; J1885; J2250; J2405; J2704; J3010; Q9967

== ENCOUNTER → 2025-03-26 12:25 | Outpatient (CLI) | payer OTHER, SELFPAY ==
--- NOTE | 2025-03-28 16:59 | DIET.OUTPTC ---
Dietary Outpatient Consult Consult Date:03/26/25 Via telehealth with pt permission Assessment:? 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 Most recent stone was uric acid. Going to complete 24 h urine test later this month. Taking potassium citrate rx. Concern with oxalate foods. Doesn't eat spinach or rhubarb. Doesn't take vit c supplements. Has stopped eating meat d/t stones. GI symptoms: Denies N/V/D/C, reports BM daily Gluten intolerance (headaches) and no scallops Diet Recall: Works 3am to 11am first meal at noon: 1 piece of toast with eggs or salad bed afterwards for few hours meal at 2-3pm sometimes, leftovers, few snack foods, or same as above Fluids: 3 L, recently increased water intake, suspects this was underlying problem Nutrition Diagnosis:? Food and nutrition related knowledge deficit r/t limited prior formal nutrition educ on kidney stones aeb pt wanting to understand nutrition to help prevent fruther kidney stones Interventions:? Discussed and provided appropriate resources on the following: -Nutrition for kidney stones (w/o confirmed 24 hr urine test/litholink): NCM handout sent via email with pt permission ? Including: Adequate hydration for produce at least 2 L urine/day, limit sodium intake to 2-1.5 g/d, moderate animal protein intake/plant based protein sources, adequate calcium intake 1200 mg/day, educ on very high oxalate foods (spinach, rhubarb and vit c supplements, increasing fruit and veg intake (5+ servings/day), citrate acid -Label reading for sodium -Multiple meals per day to achieve adequate PO intakes over 1 or 2 meals Goals: -Add calcium source with meals- khmer yogurt or cup of milk -Aim for 5 servings fruits and veg daily, start with adding 2 daily -Label read for plant based meat sodium content using label guide, can add a portion 3-4 oz meat back in once daily, avoiding the high purine meats on handout Monitoring/Evaluations:? F/u PRN Electronically Signed by: Samantha Kirkpatrick Clinical Dietitian [address] [id number]
== END ==
LOC: DIET 03-27 12:26
PROVIDERS: PCP Naturopath; Referring Provider Naturopath
DX: Z71.3 Dietary counseling and surveillance (principal); Z87.442 Personal history of urinary calculi
CPT/HCPCS: 97802